=== PATIENT | female | born 1970 | race Caucasian/White ===

== ENCOUNTER 2016-08-09 22:01 | Emergency (ER) | payer MEDICAID ==
[~2016-08-09] VITALS: Ht 167.6 cm; Wt 81.6 kg
[~2016-08-09 22:01] MED LIST: DIABETA5 MG PO; GLUCOPHAGE500 MG PO
[2016-08-09 22:06] VITALS: BP 140/91
--- NOTE | 2016-08-10 00:17 | NUR ---
PATIENT AMBULATED TO BED 1.
--- NOTE | 2016-08-10 00:18 | NUR ---
45Y F BIB SELF C/O LOW BACK PAIN RADIATES TO SHOULDERS WITH BURNING IN THE CHEST AREA X 1 DAY S/P FALL OCCURRED WHILE WALKING IN THE PARKING LOT OF SMART AND FINAL . PT STATES HER KNEES BECAME WEAK AND SHE FELL BUT DID NOT LOSE CONSCIOUSNESS OR HIT HER HEAD ON ANYTHING.PT HX OF DM, ARTHRITIS, HEART ATTACK 06/10/15 WHERE YOU RECIEVED CARE FOR AT [facility] WHERE THEY PUT [address] PT DENIES N/V/D; SKIN IS PINK/WARM/DRY; AAOX4 WITH EVEN AND STEADY GAIT; LUNGS CLEAR BL; HR EVEN AND REGULAR; PT DENIES ANY FEVER, CP, SOB, OR COUGH AT THIS TIME; PATIENT STATES PAIN OF 8/10 AT THIS TIME; VSS; PATIENT POSITIONED FOR COMFORT; HOB ELEVATED; BEDRAILS UP X2; BED DOWN. ER MD MADE AWARE OF PT STATUS.
--- NOTE | 2016-08-10 01:19 | NUR ---
Patient being evaluated by physician DR ZAMORA at bedside.
[2016-08-10] MEDS ORDERED: KETOROLAC 60 MG/2 ML VIAL IM ONE (01:20)
[2016-08-10 01:44] VITALS: BP 133/86
--- NOTE | 2016-08-10 01:44 | NUR ---
Patient discharged with v/s stable. Written and verbal after care instructions given and explained. Patient alert, oriented and verbalized understanding of instructions. Ambulatory with steady gait. All questions addressed prior to discharge. ID band removed. Patient advised to follow up with PMD. Rx of MOTRIN 800 MG, NORCO 5/325 MG given. Patient educated on indication of medication including possible reaction and side effects. Opportunity to ask questions provided and answered.
== END 2016-08-10 01:44 | disposition home or self-care (01) ==
LOC: MED 22:01
DX: M54.9 Dorsalgia, unspecified (principal); M25.511 Pain in right shoulder; M25.562 Pain in left knee; M25.561 Pain in right knee; E11.9 Type 2 diabetes mellitus without complications; I25.2 Old myocardial infarction
CPT/HCPCS: 96372; 99283; J1885

== ENCOUNTER 2016-10-12 12:51 | Inpatient (IN) | payer MEDICAID ==
[~2016-10-12] VITALS: Ht 167.6 cm; Wt 80.3 kg
[2016-10-12 12:57] VITALS: BP 127/85
--- NOTE | 2016-10-12 13:20 | NUR ---
Patient ambulated to bed 8. RN evaluating patient at bedside.
--- NOTE | 2016-10-12 13:21 | NUR ---
45/F BIB SELF C/O LOWER BACK PAIN RADIATING TO LOWER ABDOMEN X 1 DAYS.PT STATES NAUSEA BUT DENIES V/D; SKIN IS PINK/WARM/DRY; AAOX4 WITH EVEN AND STEADY GAIT; LUNGS CLEAR BL; HR EVEN AND REGULAR; PT DENIES ANY FEVER, CP, SOB, OR COUGH AT THIS TIME; PATIENT STATES PAIN OF 9/10 AT THIS TIME; VSS; PATIENT POSITIONED FOR COMFORT; HOB ELEVATED; BEDRAILS UP X2; BED DOWN. ER MD MADE AWARE OF PT STATUS.
--- NOTE | 2016-10-12 13:34 | NUR ---
Dr. Espinosa evaluating patient at bedside.
[2016-10-12] MEDS ORDERED: HYDROcodone/APAP 10/325 MG 1 TAB TAB PO STA (13:40)
--- NOTE | 2016-10-12 13:52 | NUR ---
PT TAKEN TO CT VIA W/C ACCOMPANIED BY DIRECTOR GROUP SALES.
--- NOTE | 2016-10-12 15:15 | NUR ---
Dr. Charles Bellamy evaluating patient at bedside. (Surgery)
[2016-10-12] MEDS ORDERED: MORPHINE SULFATE 4 MG/ML SYR IVP PRN (15:40)
[2016-10-12] MEDS ORDERED: LORazepam 2 MG/ML VIAL IVP PRN (15:40)
[2016-10-12] MEDS ORDERED: DEXTROSE 50% 50 ML SYR IVP PRN (15:40)
[2016-10-12] MEDS ORDERED: ONDANSETRON 4 MG/2 ML VIAL IVP PRN (15:40)
--- NOTE | 2016-10-12 15:47 | NUR ---
GAVE REPORT TO BOSSMAN GALVAN
--- NOTE | 2016-10-12 15:54 | NUR ---
Patient will be admitted to care of DR Sebastian HUNG. Admited to [facility] . Will go to [facility]. Belongings list completed. Report to BOSSMAN GALVAN.
[2016-10-12] MEDS ORDERED: CARVEDILOL6.25 MG PO (16:04)
[2016-10-12] MEDS ORDERED: ASPIRIN ADULT L81 M1 PO (16:04)
[2016-10-12] MEDS ORDERED: BUSPIRONE HCL10 MG PO (16:04)
[2016-10-12] MEDS ORDERED: ZOCOR20 M1 PO (16:05)
[2016-10-12] MEDS: DEXT 5% /NACL 0.9% 1,000 ML IV SCH (17:00)
--- NOTE | 2016-10-12 17:00 | NUR ---
[facility] SPECIMEN SENT TO LAB
[2016-10-12] MEDS: BLOOD GLUCOSE MONITORING 1 DEV DEV FS SCH ×2 (17:26→20:38)
[2016-10-12] MEDS: INSULIN LISPRO SLIDING SCALE 100 UNITS/ML VIAL SUBQ PRN ×2 (17:49→20:48)
--- NOTE | 2016-10-12 17:54 | NUR ---
PT IS COMFORTABLY RESTING WITH FRIENDS AT BEDSIDE. ALL NEEDS ATTENDED. WILL CONTINUE TO MONITOR.
--- NOTE | 2016-10-12 18:52 | NUR ---
RECEIVED PT FROM ER NURSE AWAKE AAOX4, WITH NO S/ SOF RESPIRATORY DISCOMFORT, NO COMPLAINTS OF PAIN, WITH IV ACCESS ON RIGHT HAND X20G PATENT AND INTACT. SKIN IS INTACT. CLEAR LUNG SOUNDS, POSITIVE ABDOMINAL SOUNDS. ORIENTED PT TO HOSPITAL SETTING, DISCUSSED PLAN OF CARE, PT VERBALIZED UNDERSTANDING. CALL LIGHT WITHIN REACH, WILL CONTINUE TO MONITOR. Addendum: 10/12/16 at 1853 by Lona Arboleda RN RECEIVED PT AT 1640
--- NOTE | 2016-10-12 19:20 | NUR ---
ENDORSED PT TO PANEL MACHINE SETTER NURSE IN STABLE CONDITION FOR CONTINUITY OF CARE
--- NOTE | 2016-10-12 19:30 | NUR ---
RECEIVED REPORT FROM DAY RN AT BEDSIDE, PATIENT IS AAOX4 RESTING IN BED, NO SOB OR SIGN OF DISTRESS AT THIS TIME, IV TO RIGHT HAND PATENT AND INTACT WITH IVF INFUSING WELL, PT C/O PAIN IN BACK, WILL ADMINISTER PAIN MEDS PER MD ORDER. SKIN IS INTACT, DISCUSSED PLAN OF CARE WITH PATIENT, PATIENT VERBALIZED UNDERSTANDING, SAFETY MEASURES CHECKED, CALL LIGHT WITHIN REACH. WILL CONTINUE TO MONITOR.
[2016-10-12 19:44] VITALS: BP 151/93
[2016-10-12] MEDS: MORPHINE SULFATE 2 MG/ML SYR IVP PRN (20:35)
[2016-10-12] MEDS: metFORMIN 500 MG TAB PO SCH (20:44)
[2016-10-12] MEDS ORDERED: metFORMIN 500 MG TAB ONE (20:46)
[2016-10-12] MEDS: glyBURIDE 5 MG TAB PO SCH (20:49)
--- NOTE | 2016-10-12 21:00 | NUR ---
PM MEDS ADMINISTERED, PATIENT TOLERATED WELL, NON ADMIN MICRONASE, MED NOT AVAILABLE, CALL LIGHT WITHIN REACH. WILL CONTINUE TO MONITOR.
[2016-10-13] VITALS: BP 111/68
--- NOTE | 2016-10-13 00:20 | NUR ---
VITAL SIGN STABLE, NO SOB OR SIGN OF DISTRESS AT THIS TIME, CALL LIGHT WITHIN REACH. WILL CONTINUE TO MONITOR.
[2016-10-13] MEDS: DEXT 5% /NACL 0.9% 1,000 ML IV SCH ×2 (01:40→12:12)
--- NOTE | 2016-10-13 01:58 | NUR ---
PATIENT SLEEPING, NO SOB OR SIGN OF DISTRESS AT THIS TIME, CALL LIGHT WITHIN REACH. WILL CONTINUE TO MONITOR.
--- NOTE | 2016-10-13 04:00 | NUR ---
PATIENT SLEEPING, NO SOB OR SIGN OF DISTRESS AT THIS TIME, CALL LIGHT WITHIN REACH. WILL CONTINUE TO MONITOR.
[2016-10-13] MEDS: glyBURIDE 5 MG TAB PO SCH ×2 (06:36→16:30)
[2016-10-13] MEDS: INSULIN LISPRO SLIDING SCALE 100 UNITS/ML VIAL SUBQ PRN ×4 (06:40→20:58)
[2016-10-13] MEDS: BLOOD GLUCOSE MONITORING 1 DEV DEV FS SCH ×4 (06:40→20:57)
--- NOTE | 2016-10-13 07:10 | NUR ---
RECEIVED REPORT FROM NIGHT NURSE AT BEDSIDE. PT IS AAOX4. PT SHOWS NO S/S OF DISTRESS. PT STATES SHE IS IN PAIN 7 OUT OF 10. 10 BEING THE WORSE PAIN. WE WILL MEDICATE WITH PRN MEDICATION. PT IS ON ROOM AIR. IV IS ON R WRIST. SKIN IS INTACT. PT'S BED IS LOWERED AND CALL LIGHT IS WITHIN REACH. WILL CONTINUE TO MONITOR.
--- NOTE | 2016-10-13 07:28 | NUR ---
ENDORSED PATIENT TO DAY RN AT BEDSIDE, PATIENT IN STABLE CONDITION.
[2016-10-13 07:56] VITALS: BP 113/77
[2016-10-13] MEDS: metFORMIN 500 MG TAB PO SCH ×2 (08:00→16:44)
--- NOTE | 2016-10-13 08:05 | NUR ---
PATIENT HAS BEEN SCREENED AND CATEGORIZED MODERATE NUTRITION RISK. PATIENT WILL BE SEEN WITHIN 3-5 DAYS OF ADMISSION. 10/15/16-10/17/[address]
[2016-10-13] MEDS: MORPHINE SULFATE 2 MG/ML SYR IVP PRN (08:53)
--- NOTE | 2016-10-13 11:30 | NUR ---
PT IS SITTING IN BED. PT C/O FEELING NAUSEATED. WILL MEDICATE.
--- NOTE | 2016-10-13 12:15 | NUR ---
PT IS IN BED RESTING. FAMILY FRIEND IS AT BEDSIDE. PT SHOWS NO S/S OF DISTRESS.
[2016-10-13 16:00] VITALS: BP 127/74
--- NOTE | 2016-10-13 16:45 | NUR ---
CALLED DR. HALL AND MADE HIM AWARE OF PT STATUS AND CONSULT ORDER.
--- NOTE | 2016-10-13 16:55 | NUR ---
SPOKE WITH DR. ACHARYA CONCERNING ABOUT PT'S PLAN OF CARE. DR. ACHARYA STATED HE WILL NOT BE PERFORMING SURGERY ON PT AND TO RESUME REGULAR DIET.
--- NOTE | 2016-10-13 19:30 | NUR ---
Patient's Plan of Care was discussed and reviewed with MOLASSES AND CARAMEL OPERATOR: KIKA
--- NOTE | 2016-10-13 19:30 | NUR ---
GAVE PT REPORT AT BEDSIDE. PT ENDORSED IN STABLE CONDITION.
--- NOTE | 2016-10-13 19:31 | NUR ---
RECD. RESTING IN BED, AWAKE, A/OX4. RESPIRATION EVEN AND UNLABORED. IV OF D5NS AT 100 ML/HR INFUSING, RIGHT HAND G 20. PLAN OF CARE FOR THE SHIFT DISCUSSED. VERBALIZED UNDERSTANDING. DENIES PAIN 0/10.
--- NOTE | 2016-10-13 19:50 | NUR ---
DR. HUNG IS HERE AND CHECKED PATIENT. WILL FOLLOW UP WITH NEW ORDERS.
--- NOTE | 2016-10-13 20:05 | NUR ---
DR. HUNG DISCHARGED PATIENT TO HOME. DISCHARGE INSTRUCTIONS GIVEN TO PATIENT. VERBALIZED UNDERSTANDING.
[2016-10-13] MEDS ORDERED: MOTRIN600 MG PO (20:08)
[2016-10-13] MEDS ORDERED: NORCO 325 MG-7.1 TAB PO (20:08)
[2016-10-13] MEDS ORDERED: LIORESAL10 MG PO (20:08)
--- NOTE | 2016-10-13 21:30 | NUR ---
SITTING ON BED, ALREADY DRESSED TO GO HOME, WAITING FOR FRIEND TO TAKE HER HOME.
--- NOTE | 2016-10-13 22:00 | NUR ---
IV DISCONTINUED. ALL BELONGINGS READY FOR TAKING TO HOME. FRIEND AT THE BEDSIDE.
[2016-10-13 22:03] VITALS: BP 125/71
--- NOTE | 2016-10-13 22:20 | NUR ---
TAKEN TO LOBBY PARKING AREA IN STABLE CONDITION VIA W/C ACCOMPANIED BY FRIEND FOR DISCHARGE TO HOME VIA PRIVATE VEHICLE.
== END 2016-10-13 22:20 | disposition home or self-care (01) ==
LOC: MED 12:51 → MTU 15:41
PROVIDERS: ADMIT Preventive Medicine Preventive Medicine/Occupational Environmental Medicine; ATTEND Preventive Medicine Preventive Medicine/Occupational Environmental Medicine
DX: K80.20 Calculus of gallbladder without cholecystitis without obstruction (principal); E11.40 Type 2 diabetes mellitus with diabetic neuropathy, unspecified; E11.65 Type 2 diabetes mellitus with hyperglycemia; I10 Essential (primary) hypertension; D64.9 Anemia, unspecified; E78.5 Hyperlipidemia, unspecified; I25.10 Atherosclerotic heart disease of native coronary artery without angina pectoris; I25.2 Old myocardial infarction; Z79.82 Long term (current) use of aspirin; Z79.899 Other long term (current) drug therapy

== ENCOUNTER 2017-09-21 04:26 | Inpatient (IN) | payer MEDICAID ==
[~2017-09-21] VITALS: Ht 167.6 cm; Wt 76.8 kg
[~2017-09-21 04:26] MED LIST changes: +ACET-2863 PO; +ASPI81CT95 PO; +BACL10TA4 PO; +BUSP10TA3 PO; +CARV6.252 PO; -DIABETA5 MG PO; -GLUCOPHAGE500 MG PO; +GLYB5TAB9 PO; +IBUP-2213 PO; +METF500T PO; +SIMV20TA1 PO
[2017-09-21 04:31] VITALS: BP 121/80
[2017-09-21] MEDS ORDERED: INSULIN REGULAR, HUMAN 100 UNIT/ML VIAL SUBQ ONE (04:50)
[2017-09-21] MEDS ORDERED: NACL 0.9% 1,000 ML IV ONE (04:50)
[2017-09-21 05:03] LABS: BASOPHILS # (AUTO) 0.1 K/uL (0.00-0.22); BASOPHILS % (AUTO) 1.7 % (0.0-2.0); EOSINOPHILS # (AUTO) 0.1 K/uL (0-0.4); EOSINOPHILS % (AUTO) 1.2 % (0.0-4.0); HEMATOCRIT 31.9 % (36-48); HEMOGLOBIN 9.7 g/dL (12.0-16.0); LYMPHOCYTES # (AUTO) 1.2 K/uL (2.5-16.5); LYMPHOCYTES % (AUTO) 14.6 % (20.5-51.1); MEAN CORPUSCULAR HEMOGLOBIN 20 pg (27-31); MEAN CORPUSCULAR HGB CONC 31 g/dL (33-37); MEAN CORPUSCULAR VOLUME 65.7 fL (80-94); MONOCYTES # (AUTO) 0.3 K/uL (0.8-1.0); MONOCYTES % (AUTO) 4.1 % (1.7-9.3); NEUTROPHILS # (AUTO) 6.2 K/uL (1.8-7.7); NEUTROPHILS % (AUTO) 78.4 % (42.2-75.2); PLATELET COUNT (AUTO) 275 K/uL (140-450); RED BLOOD CELL COUNT(AUTO) 4.85 MIL/uL (4.20-5.40); RED CELL DISTRIBUTION WIDTH 16.9 % (11.6-13.7); WHITE BLOOD COUNT (AUTO) 7.9 K/uL (4.8-10.8)
[2017-09-21 05:35] LABS: ALBUMIN 3.6 g/dL (3.4-5.0); ANION GAP 15.7 (8-16); CARBON DIOXIDE 24.3 mmol/L (21-32); CREATININE 0.7 mg/dL (0.6-1.3); TOTAL BILIRUBIN 0.4 mg/dL (0.0-1.0)
[2017-09-21] MEDS ORDERED: DEXTROSE 50% 50 ML SYR IVP PRN (05:45)
[2017-09-21] MEDS ORDERED: NITROGLYCERIN 0.4 MG TAB SL PRN (05:45)
[2017-09-21] MEDS ORDERED: ONDANSETRON 4 MG/2 ML VIAL IVP PRN (05:45)
[2017-09-21] MEDS ORDERED: HYDROcodone/APAP 7.5/325 MG 1 TAB PO PRN (05:45)
[2017-09-21] MEDS ORDERED: ACETAMINOPHEN 325 MG TAB PO PRN (05:45)
[2017-09-21 06:21] LABS: APPEARANCE,URINE CLEAR (CLEAR); BILIRUBIN,URINE NEGATIVE (NEGATIVE); BLOOD, URINE NEGATIVE (NEGATIVE); COLOR,URINE YELLOW (YELLOW); LEUKOCYTE ESTERASE ,URINE NEGATIVE (NEGATIVE); NITRITE, URINE NEGATIVE (NEGATIVE); UGLUCOSE 3+ (NEGATIVE)
[2017-09-21] MEDS: BLOOD GLUCOSE MONITORING 1 DEV DEV FS SCH ×4 (07:30→21:20)
[2017-09-21 07:41] LABS: FREE T4 (FREE THYROXINE) 0.92 ng/dL (0.76-1.46); MAGNESIUM 1.9 mg/dL (1.8-2.4); PHOSPHORUS 3.7 mg/dL (2.5-4.9); THYROID STIMULATING HORMONE 2.53 uIU/mL (0.34-3.74)
[2017-09-21 08:00] VITALS: BP 139/75
[2017-09-21 08:04] LABS: BARBITURATE, URINE NEG. ng/ml (NEG <=200); BENZODIAZEPINE, URINE NEG. ng/mL (NEG <=200); CANNABINOID, URINE NEG. ng/mL (NEG <=50); COCAINE, URINE NEG. ng/mL (NEG <=300); OPIATE, URINE NEG. ng/mL (NEG <=2000); PHENCYCLIDINE SCREEN,URINE NEG. ng/mL (NEG <=25)
[2017-09-21] MEDS: NACL 0.9% 1,000 ML IV SCH (08:39)
[2017-09-21] MEDS: DOCUSATE SODIUM 100 MG GELCAP PO SCH ×2 (08:47→21:13)
[2017-09-21] MEDS ORDERED: LISINOPRIL 5 MG TAB PO SCH (09:00)
[2017-09-21] MEDS ORDERED: METOPROLOL 25 MG TAB PO SCH (09:00)
[2017-09-21] MEDS ORDERED: ASPIRIN 81 MG TAB.CHEW PO SCH ×2 (09:00→12:55)
[2017-09-21 09:57] LABS: PROTHROMBIN TIME 10.6 secs (10.8-13.4)
[2017-09-21 12:00] VITALS: BP 114/71
[2017-09-21] MEDS ORDERED: SIMV20TA1 PO (12:41)
[2017-09-21] MEDS ORDERED: ASPI81CT95 PO (12:41)
[2017-09-21] MEDS ORDERED: LISI-424 PO (12:41)
[2017-09-21] MEDS ORDERED: PAX20 PO (12:41)
[2017-09-21] MEDS ORDERED: BUSP10TA3 PO (12:41)
[2017-09-21] MEDS ORDERED: CLOP75TA55 PO (12:41)
[2017-09-21] MEDS ORDERED: CARV6.252 PO (12:41)
[2017-09-21] MEDS ORDERED: CLOPIDOGREL 75 MG TAB PO SCH (13:00)
[2017-09-21] MEDS ORDERED: FLUCONAZOLE 100 MG TAB PO SCH (13:03)
[2017-09-21] MEDS ORDERED: glyBURIDE 5 MG TAB PO SCH (13:06)
[2017-09-21] MEDS ORDERED: metFORMIN 500 MG TAB PO SCH (13:09)
[2017-09-21] MEDS ORDERED: PARoxetine 20 MG TAB PO SCH (13:10)
[2017-09-21] MEDS: INSULIN LISPRO SLIDING SCALE 100 UNITS/ML VIAL SUBQ PRN ×3 (13:25→21:24)
[2017-09-21 16:00] VITALS: BP 110/72
[2017-09-21] MEDS ORDERED: ASCORBIC ACID 500 MG TAB PO SCH (16:00)
[2017-09-21] MEDS ORDERED: FERROUS SULFATE 325 MG TABEC PO SCH (16:00)
[2017-09-21] MEDS ORDERED: FERRIC GLUCONATE 125 MG in NACL 0.9% 100 ML IV SCH (16:15)
[2017-09-21 20:00] VITALS: BP 126/81
[2017-09-21] MEDS ORDERED: BUSPIRONE HCL 20 MG PO SCH (21:00)
[2017-09-21] MEDS ORDERED: INSULIN LANTUS 100 UNITS/ML 10 ML VIAL SUBQ SCH (21:00)
[2017-09-21] MEDS ORDERED: CARVEDILOL 6.25 MG TAB PO SCH (21:00)
[2017-09-21] MEDS ORDERED: SIMVASTATIN 20 MG TAB PO SCH (21:00)
[2017-09-21] MEDS ORDERED: ATORVASTATIN 20 MG TAB PO SCH (21:00)
[2017-09-21] MEDS: busPIRone 5 MG TAB PO SCH (21:13)
[2017-09-21] MEDS: CARVEDILOL 6.25 MG TAB PO SCH (21:14)
[2017-09-21] MEDS: glyBURIDE 5 MG TAB PO SCH (21:15)
[2017-09-21] MEDS: metFORMIN 500 MG TAB PO SCH (21:15)
[2017-09-22] VITALS: BP_SYST 122; BP_SYST 129; BP_DIAS 72; BP_DIAS 73
[2017-09-22] MEDS: NACL 0.9% 1,000 ML IV SCH (01:43)
[2017-09-22 04:10] VITALS: BP 108/74
[2017-09-22] MEDS: BLOOD GLUCOSE MONITORING 1 DEV DEV FS SCH ×2 (06:26→12:06)
[2017-09-22] MEDS: INSULIN LISPRO SLIDING SCALE 100 UNITS/ML VIAL SUBQ PRN ×2 (06:28→12:11)
[2017-09-22 07:53] LABS: FOLIC ACID 15.9 ng/mL (>3.0)
[2017-09-22 08:00] VITALS: BP 130/70
[2017-09-22] MEDS ORDERED: FERROUS SULFATE 325 MG TABEC PO SCH (08:00)
[2017-09-22 08:16] LABS: ANION GAP 12.6 (8-16); CARBON DIOXIDE 26.4 mmol/L (21-32); CREATININE 0.5 mg/dL (0.6-1.3)
[2017-09-22 08:17] LABS: EOSINOPHILS # (AUTO) 0.2 K/uL (0-0.4); HEMATOCRIT 28.2 % (36-48); HEMOGLOBIN 8.5 g/dL (12.0-16.0); LYMPHOCYTES # (AUTO) 1.8 K/uL (2.5-16.5); MEAN CORPUSCULAR HEMOGLOBIN 20 pg (27-31); MEAN CORPUSCULAR HGB CONC 30 g/dL (33-37); MEAN CORPUSCULAR VOLUME 66.4 fL (80-94); MONOCYTES # (AUTO) 0.5 K/uL (0.8-1.0); NEUTROPHILS # (AUTO) 4.5 K/uL (1.8-7.7); PLATELET COUNT (AUTO) 265 K/uL (140-450); RED BLOOD CELL COUNT(AUTO) 4.25 MIL/uL (4.20-5.40); RED CELL DISTRIBUTION WIDTH 17.9 % (11.6-13.7)
[2017-09-22 08:19] LABS: BASOPHILS % (AUTO) 0.4 % (0.0-2.0); EOSINOPHILS % (AUTO) 2.7 % (0.0-4.0); LYMPHOCYTES % (AUTO) 25.2 % (20.5-51.1); MONOCYTES % (AUTO) 6.9 % (1.7-9.3); NEUTROPHILS % (AUTO) 64.8 % (42.2-75.2)
[2017-09-22] MEDS: busPIRone 5 MG TAB PO SCH (08:49)
[2017-09-22] MEDS: DOCUSATE SODIUM 100 MG GELCAP PO SCH (08:49)
[2017-09-22] MEDS: CARVEDILOL 6.25 MG TAB PO SCH (08:49)
[2017-09-22] MEDS: glyBURIDE 5 MG TAB PO SCH (08:50)
[2017-09-22] MEDS: metFORMIN 500 MG TAB PO SCH (08:50)
[2017-09-22] MEDS ORDERED: ASPIRIN 81 MG TAB.CHEW PO SCH (09:00)
[2017-09-22] MEDS ORDERED: PARoxetine 20 MG TAB PO SCH (09:00)
[2017-09-22] MEDS ORDERED: CLOPIDOGREL 75 MG TAB PO SCH (09:00)
[2017-09-22] MEDS ORDERED: LISINOPRIL 5 MG TAB PO SCH (09:00)
[2017-09-22] MEDS ORDERED: ASCORBIC ACID 500 MG TAB PO SCH (09:00)
[2017-09-22] MEDS ORDERED: FERR-18 PO (11:27)
[2017-09-22] MEDS ORDERED: LANTUS SUBQ (11:27)
[2017-09-22] MEDS ORDERED: VITC500 PO (11:27)
[2017-09-22] MEDS ORDERED: DOCU-299 PO (11:27)
[2017-09-22 12:00] VITALS: BP 147/88
[2017-09-22] MEDS ORDERED: metFORMIN 500 MG TAB PO SCH (12:05)
[2017-09-22] MEDS ORDERED: CARVEDILOL 3.125 MG TAB PO SCH (12:06)
== END 2017-09-22 13:20 | disposition home or self-care (01) | DRG 756 ==
LOC: MED 04:26 → MTU 05:49
PROVIDERS: ADMIT Family Medicine; ATTEND Family Medicine
DX: F41.9 Anxiety disorder, unspecified (principal); D68.59 Other primary thrombophilia; E11.69 Type 2 diabetes mellitus with other specified complication; E11.65 Type 2 diabetes mellitus with hyperglycemia; B37.3 Candidiasis of vulva and vagina; F32.9 Major depressive disorder, single episode, unspecified; E78.5 Hyperlipidemia, unspecified; N39.3 Stress incontinence (female) (male); E78.00 Pure hypercholesterolemia, unspecified; D50.9 Iron deficiency anemia, unspecified; N94.9 Unspecified condition associated with female genital organs and menstrual cycle; I25.10 Atherosclerotic heart disease of native coronary artery without angina pectoris; Z79.82 Long term (current) use of aspirin; Z79.84 Long term (current) use of oral hypoglycemic drugs; I25.2 Old myocardial infarction; Z95.5 Presence of coronary angioplasty implant and graft; Z83.3 Family history of diabetes mellitus
CPT/HCPCS: 36415; 71045; 80048; 80053; 80305; 81003; 81025; 82150; 82272; 82607; 82728; 82746; 82948; 83036; 83540; 83605; 83690; 83735; 83880; 84100; 84439; 84443; 84484; 85025; 85045; 85379; 85610; 85730; 87081; 93005; 93970; 96360; 99285; J1815; J2916; J7030; Q0092

== ENCOUNTER 2018-11-15 00:07 | Emergency (ER) | payer SELFPAY ==
[~2018-11-15] VITALS: Ht 167.6 cm; Wt 79.4 kg
[~2018-11-15 00:07] MED LIST changes: -ACET-2863 PO; -BACL10TA4 PO; +CLOP75TA55 PO; +DOCU-299 PO; +FERR-18 PO; -GLYB5TAB9 PO; +LANTUS SUBQ; +LISI-424 PO; +PAX20 PO; +VITC500 PO
[2018-11-15 00:15] VITALS: BP 134/99
--- NOTE | 2018-11-15 00:24 | NUR ---
PT AMBULATED TO BED #2
--- NOTE | 2018-11-15 00:30 | NUR ---
PT IS A 48 Y/O FEMALE WHO PRESENTS TO THE ED C/O FEET PAIN. PT STATES THAT SHE HAS CHRONIC PAIN AND LIVES WITH IT. PT REPORTS 10/10 ACHING BILTERAL FEET PAIN THAT DOES NOT RADIATE, REPORTS ELECTRIC AND STABBING, NO OBVIOUS TRAUMA/DEFORMITY. PT TAKES GABAPENTIN BUT HAS NO RELIEF. PT AWAKE AND ALERT, RR EVEN/UNLABORED. PT REPOSITIONED FOR COMFORT, BED IN LOWEST POSITION. ER MD DR. MAHARAJ NOTIFIED. WILL CONTINUE TO MONITOR. [facility] MEDICAL HX: DM, GALLSTONES, NEUROPATHY, HEART ATTACK-2 YEARS AGO, ARTHRITIS
[2018-11-15] MEDS ORDERED: KETOROLAC 60 MG/2 ML VIAL IM ONE (01:05)
--- NOTE | 2018-11-15 01:55 | NUR ---
Patient discharged with v/s stable. Patient acting appropriatly, states pain has decreased to 3/10; states coping. Patient states she feel better to go home. Written and verbal after care instructions given and explained. Patient alert, oriented and verbalized understanding of instructions. Ambulatory with steady gait. All questions addressed prior to discharge. ID band removed. Patient advised to follow up with PMD. Rx of Neurontin given. Patient educated on indication of medication including possible reaction and side effects. Opportunity to ask questions provided and answered.
[2018-11-15 02:03] VITALS: BP 128/87
== END 2018-11-15 01:55 | disposition home or self-care (01) ==
LOC: MED 00:07
DX: E11.40 Type 2 diabetes mellitus with diabetic neuropathy, unspecified (principal); I25.2 Old myocardial infarction; I10 Essential (primary) hypertension; Z79.4 Long term (current) use of insulin; Z79.82 Long term (current) use of aspirin; Z79.01 Long term (current) use of anticoagulants; Z79.899 Other long term (current) drug therapy
CPT/HCPCS: 82948; 96372; 99283; J1885

== ENCOUNTER 2022-04-19 11:19 | Emergency (ER) | payer MEDICAID ==
[~2022-04-19] VITALS: Ht 167.6 cm; Wt 76.2 kg
[~2022-04-19 11:19] MED LIST changes: -LISI-424 PO; +LISI5TAB24 PO; +METF-346 PO; -METF500T PO; +SIMV-369 PO; -SIMV20TA1 PO
[2022-04-19 11:32] VITALS: BP 157/90
--- NOTE | 2022-04-19 12:39 | NUR ---
PT TO ER BED 7
[2022-04-19] MEDS ORDERED: LIDOCAINE MPF 2% 100 MG/5 ML VIAL INJ ONE (12:45)
--- NOTE | 2022-04-19 12:50 | NUR ---
51 y/o female bib self with c/o a piece of glass in left big toe. Per patient, she was walking barefoot home and stepped on a piece of glass. Patient has numbness on her feet d/t DM. Patient has pain upon movement or ambulating. Medical History: DM, HTN, Anemia NKDA
[2022-04-19] MEDS ORDERED: LIDOCAINE MPF 1% 10 MG/ML VIAL INJ ONE (13:00)
--- NOTE | 2022-04-19 13:21 | NUR ---
DOREEN Mckinney evaluating at bedside.
[2022-04-19] MEDS ORDERED: BACITRACIN OINT 500 UNITS/GM PKT TP ONE (13:25)
[2022-04-19] MEDS ORDERED: BACI1PAC6 TP (13:26)
[2022-04-19] MEDS ORDERED: IBUP-2213 PO (13:26)
--- NOTE | 2022-04-19 13:59 | NUR ---
PTS LEFT 1ST TOE DRESSED WITH GAUZE ROLL AND TAPED. +CMS.
[2022-04-19 14:16] VITALS: BP 137/84
--- NOTE | 2022-04-19 14:16 | NUR ---
Patient discharged with v/s stable. Written and verbal after care instructions given. Patient alert, oriented and verbalized understanding of instructions. Ambulatory with steady gait. All questions addressed prior to discharge. ID band removed. Patient advised to follow up with PMD. Rx of Bactitracin and Ibuprofen given. Opportunity to ask questions provided and answered.
--- NOTE | 2022-04-19 14:17 | NUR ---
Chart checked and completed. The patient's care was reviewed and supervised by Camille Ponce RN.
== END 2022-04-19 14:16 | disposition home or self-care (01) ==
LOC: MED 11:19
DX: S90.452A Superficial foreign body, left great toe, initial encounter (principal); I25.10 Atherosclerotic heart disease of native coronary artery without angina pectoris; I10 Essential (primary) hypertension; E11.9 Type 2 diabetes mellitus without complications; Z79.4 Long term (current) use of insulin; Z79.899 Other long term (current) drug therapy; W25.XXXA Contact with sharp glass, initial encounter; Y93.89 Activity, other specified; Y92.89 Other specified places as the place of occurrence of the external cause; Y99.8 Other external cause status
CPT/HCPCS: 10120; 99285; J2001

== ENCOUNTER 2023-08-15 08:41 | Inpatient (IN) | payer MEDICAID ==
[2023-08-15] VITALS (9 sets, daily range): BP systolic 116–169; BP diastolic 59–87; PULSE 63–88; RESP 16–18; TEMP 97.5–98.3; O2SAT 98–99
[~2023-08-15] VITALS: Ht 167.6 cm; Wt 76.2 kg
[~2023-08-15 08:41] MED LIST changes: +BACI-418 TP
[2023-08-15] MEDS: NACL 0.9% 1,000 ML IV ONE (10:14)
[2023-08-15] MEDS: ACETAMINOPHEN EXTRA STRENGTH 500 MG TAB PO ONE (10:15)
[2023-08-15 10:33] LABS: BASOPHILS % (AUTO) 0.4 % (0.0-2.0); EOSINOPHILS # (AUTO) 0.2 K/uL (0-0.4); EOSINOPHILS % (AUTO) 2.8 % (0.0-4.0); HEMATOCRIT 41.6 % (36-48); LYMPHOCYTES # (AUTO) 1.5 K/uL (2.5-16.5); LYMPHOCYTES % (AUTO) 22.7 % (20.5-51.1); MEAN CORPUSCULAR HEMOGLOBIN 28 pg (27-31); MEAN CORPUSCULAR HGB CONC 34 g/dL (33-37); MONOCYTES # (AUTO) 0.4 K/uL (0.8-1.0); MONOCYTES % (AUTO) 5.5 % (1.7-9.3); NEUTROPHILS # (AUTO) 4.7 K/uL (1.8-7.7); NEUTROPHILS % (AUTO) 68.6 % (42.2-75.2); PLATELET COUNT (AUTO) 206 K/uL (140-450); RED BLOOD CELL COUNT(AUTO) 4.95 MIL/uL (4.20-5.40); RED CELL DISTRIBUTION WIDTH 14.5 % (11.6-13.7); WHITE BLOOD COUNT (AUTO) 6.8 K/uL (4.8-10.8)
[2023-08-15 10:41] LABS: ANION GAP 12.3 (8-16); CALCIUM 8.8 mg/dL (8.5-10.1); CARBON DIOXIDE 27.8 mmol/L (21-32); CREATININE 0.6 mg/dL (0.6-1.3); POTASSIUM 4.1 mmol/L (3.5-5.1)
[2023-08-15 10:45] LABS: INR 0.99 (0.8-1.2); PARTIAL THROMBOPLASTIN TIME 27.2 secs (22-35.6); PROTHROMBIN TIME 10.4 secs (10.8-13.4)
[2023-08-15] MEDS: ASPIRIN 325 MG TAB PO ONE (11:15)
[2023-08-15] MEDS ORDERED: ONDANSETRON 4 MG/2 ML VIAL IVP PRN (11:25)
[2023-08-15] MEDS ORDERED: MORPHINE SULFATE 2 MG/ML SYR IVP PRN (11:25)
[2023-08-15] MEDS ORDERED: DEXTROSE 50% 50 ML SYR IVP PRN (11:35)
[2023-08-15] MEDS: DEXAMETHASONE 10 MG/ML VIAL IVP ONE (11:59)
[2023-08-15] MEDS: METOCLOPRAMIDE 10 MG/2 ML INJ VIAL IVP ONE (11:59)
[2023-08-15] MEDS: diphenhydrAMINE 50 MG/ML VIAL IVP ONE (12:01)
[2023-08-15] MEDS: lisinopriL 5 MG TAB PO STA (12:45)
[2023-08-15] MEDS: carvediloL 6.25 MG TAB PO STA (12:46)
[2023-08-15] MEDS: LABETALOL 20 MG/4 ML VIAL IVP STA (12:49)
[2023-08-15] MEDS ORDERED: hydrALAZINE 20 MG/ML VIAL IVP PRN (13:45)
[2023-08-15] MEDS: NACL 0.9% 1,000 ML IV SCH (14:00)
[2023-08-15] MEDS: INSULIN LISPRO SLIDING SCALE 100 UNITS/ML VIAL SUBQ PRN (16:41)
[2023-08-15] MEDS: BLOOD GLUCOSE MONITORING 1 DEV DEV FS SCH (16:42)
[2023-08-15] MEDS: DOCUSATE SODIUM 100 MG GELCAP PO SCH (20:10)
[2023-08-15] MEDS: SIMVASTATIN 20 MG TAB PO SCH (20:10)
[2023-08-15] MEDS: busPIRone 5 MG TAB PO SCH (20:10)
[2023-08-15] MEDS ORDERED: ATORVASTATIN 20 MG TAB PO SCH (21:00)
[2023-08-15] MEDS ORDERED: BUSPIRONE HCL 20 MG PO SCH (21:00)
[2023-08-16] VITALS (7 sets, daily range): BP systolic 108–156; BP diastolic 54–85; PULSE 56–76; RESP 18; TEMP 97.4–98.2; O2SAT 97–99
[2023-08-16] MEDS: HYDROcodone/APAP 5/325 MG 1 TAB TAB PO PRN (04:17)
[2023-08-16 06:49] LABS: BASOPHILS % (AUTO) 0.1 % (0.0-2.0); EOSINOPHILS % (AUTO) 0.1 % (0.0-4.0); HEMATOCRIT 39.2 % (36-48); HEMOGLOBIN 13.1 g/dL (12.0-16.0); LYMPHOCYTES # (AUTO) 1.1 K/uL (2.5-16.5); MEAN CORPUSCULAR HEMOGLOBIN 28 pg (27-31); MEAN CORPUSCULAR HGB CONC 34 g/dL (33-37); MEAN CORPUSCULAR VOLUME 83.4 fL (80-94); MONOCYTES # (AUTO) 0.5 K/uL (0.8-1.0); MONOCYTES % (AUTO) 3.6 % (1.7-9.3); NEUTROPHILS # (AUTO) 11.7 K/uL (1.8-7.7); PLATELET COUNT (AUTO) 206 K/uL (140-450); RED CELL DISTRIBUTION WIDTH 14.1 % (11.6-13.7); WHITE BLOOD COUNT (AUTO) 13.2 K/uL (4.8-10.8)
[2023-08-16 07:02] LABS: ANION GAP 14.3 (8-16); CALCIUM 8.7 mg/dL (8.5-10.1); CARBON DIOXIDE 23.5 mmol/L (21-32); CREATININE 0.5 mg/dL (0.6-1.3); POTASSIUM 3.8 mmol/L (3.5-5.1)
[2023-08-16 07:26] LABS: NEUTROPHILS % (AUTO) 88.1 % (42.2-75.2)
[2023-08-16 07:27] LABS: LYMPHOCYTES % (AUTO) 8.1 % (20.5-51.1)
[2023-08-16] MEDS: FERROUS SULFATE 325 MG TABEC PO SCH (07:49)
[2023-08-16] MEDS: PARoxetine 20 MG TAB PO SCH (08:09)
[2023-08-16] MEDS: ASCORBIC ACID 500 MG TAB PO SCH (08:09)
[2023-08-16] MEDS: carvediloL 6.25 MG TAB PO SCH (08:10)
[2023-08-16] MEDS: lisinopriL 5 MG TAB PO SCH (08:10)
[2023-08-16] MEDS: CLOPIDOGREL 75 MG TAB PO SCH (08:10)
[2023-08-16] MEDS: ASPIRIN 81 MG TAB.CHEW PO SCH (08:11)
[2023-08-16] MEDS: ACETAMINOPHEN 325 MG TAB PO PRN (15:47)
== END 2023-08-16 17:40 | disposition home or self-care (01) | DRG 203 ==
LOC: MED 08:41 → MTU 11:26
PROVIDERS: ADMIT Student in an Organized Health Care Education/Training Program; ATTEND Student in an Organized Health Care Education/Training Program
DX: M94.0 Chondrocostal junction syndrome [Tietze] (principal); D50.9 Iron deficiency anemia, unspecified; E11.9 Type 2 diabetes mellitus without complications; I10 Essential (primary) hypertension; Z79.82 Long term (current) use of aspirin; Z79.899 Other long term (current) drug therapy; Z95.5 Presence of coronary angioplasty implant and graft; Z95.1 Presence of aortocoronary bypass graft
CPT/HCPCS: 36415; 71045; 80048; 82948; 83880; 84484; 85025; 85610; 85730; 87081; 93005; 96374; 96375; 99285; J1100; J1200; J1815; J2765; J3490; Q0092